=== PATIENT | female | born 1935 | race Caucasian/White ===

== ENCOUNTER → 2016-12-14 | Outpatient (CLI) | payer OTHER ==
[~2016-12-14] MED LIST: ALLEGRA-D1 TAB.SR1; ASPIRIN FREE325 MG PO; ASPIRIN PO; BENADRYL25 MG PO; CALCIUM + D 6001 TA1 PO; FOSAMAX; LORTAB 7.5-5001 TAB PO; LORTAB 7.51 TAB 7.5/ PO; MILK OF MAGNESIA PO; MULTI-VITAMIN1 TAB; NEXIUM PO; OYSTER CALCIUM500 MG; PHENERGAN25 M1 PO
--- NOTE | ~2016-12-14 | MY11 ---
[facility]. [facility] A Service of [facility] RADIOLOGY TEXT RESULTS PATIENT: EVA JANG LOCATION: [facility] : 31 UNIT #: [id number] AGE: [address]: Jesse Webb MD SEX: F ORDER DR: [id number] [address] [address] [id number] MR#: [id number] Acc #: [id number] NAME: EVA JANG : 1935 SEX: F STUDY DATE/TIME: 12/14/2016 9:42 UNIT: [facility] ROOM: STUDY DESCRIPTION: MY Mammogram Screening Dig Juni Attending Physician: Jesse Webb M.D. Referring Physician: Jesse Webb M.D. Ordering Physician: Jesse Webb M.D. Primary Care Physician: Jesse Webb M.D. MEDICAL IMAGING REPORT This report is preliminary unless electronic signature is present. EXAM Digital screening mammogram 12/14/2016, [facility]. HISTORY 81-year-old woman. Two previous breast biopsies, 1 left breast and 1 right breast. No risk elevation. Annual screening. COMPARISON Comparison mammograms date to 07/13/2005, with most recent 12/09/2015. TECHNIQUE Digital imaging of each breast was completed utilizing screening protocol. Review includes FDA-approved CAD device. FINDINGS The biopsy scar markers were not placed on the current images. Review includes FDA-approved CAD device. Breast parenchyma remains dense with a heterogeneous presentation. Post biopsy stellate scar projecting upper outer quadrant left breast is stable. Image-guided biopsy marker in the right breast is stable upper outer posterior third location. There are secretory calcifications in each breast, somewhat more pronounced on the left. I see no suspicious microcalcifications and no suspicious interval occurring architectural distortion. IMPRESSION Stable benign mammogram. Annual screening recommended. Patients over the age of 40 are entered into a reminder system with target due date for the next mammogram. A result letter will be sent to the patient. BIRADS: 2 Benign findings. [facility] A Service of [facility] RADIOLOGY TEXT RESULTS PATIENT: EVA JANG LOCATION: [facility] : 31 UNIT #: [id number] AGE: [address]: Jesse Webb MD SEX: F ORDER DR: Dictated by... Jerrell Cano M.D. THIS IS AN ELECTRONICALLY VERIFIED REPORT Jerrell Cano M.D. at 12/14/2016 2:10 PM SHAWN/may TD: 12/14/2016 12:23 JOB #: [id number] MEDICAL IMAGING REPORT Page 1 of 1
== END | disposition home or self-care (01) ==
LOC: SMAM 09:08
DX: Z12.31 Encounter for screening mammogram for malignant neoplasm of breast (principal)
CPT/HCPCS: G0202